=== PATIENT | male | born 1980 | race Caucasian/White ===

== ENCOUNTER 2017-03-16 09:30 | Emergency (ER) | payer OTHER ==
[~2017-03-16] VITALS: Ht 188 cm; Wt 99.8 kg
--- NOTE | 2017-03-16 10:29 | ED HAND/WRIST INJURY COMPLAINT ---
History of Present Illness General Chief Complaint: General Adult Stated Complaint: BIG FISH HOOK IN HAND Source: patient Exam Limitations: no limitations Vital Signs & Intake/Output Vital Signs & Intake/Output Vital Signs Date Time Temp Pulse Resp B/P B/P Pulse O2 O2 Flow FiO2 Mean Ox Delivery Rate 03/16 1154 97.5 88 18 137/87 98 Room Air ED Intake and Output 03/17 0000 03/16 1200 Intake Total 0 Output Total Balance 0 Intake, Oral 0 Patient 220 lb Weight Allergies Coded Allergies: No Known Allergies (03/16/17) Reconcile Medications Augmentin (Augmentin 500-125 Tablet) 500 MG-125 MG TABLET 1 TAB PO TID INFECTION Triage Note: PT TO TRIAGE WITH FISHHOOK BARBED IN BILATERAL HANDS. UNSURE ON LAST TETANUS Triage Nurses Notes Reviewed? yes HPI: Patient presents for evaluation of fishhooks embedded in his hands. He has one looked embedded in the pad of the right thumb and another embedded in the left hyperthenar eminence. Past History Travel History Traveled to [place] past 21 day No Medical History Any Pertinent Medical History? 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 No Review of Systems Review of Systems Constitutional: Reports: no symptoms. EENTM: Reports: no symptoms. Respiratory: Reports: no symptoms. Cardiovascular: Reports: no symptoms. GI: Reports: no symptoms. Genitourinary: Reports: no symptoms. Musculoskeletal: Reports: no symptoms. Skin: Reports: see HPI. Neurological/Psychological: Reports: no symptoms. Hematologic/Endocrine: Reports: no symptoms. Immunologic/Allergic: Reports: no symptoms. All Other Systems: Reviewed and Negative Physical Exam Physical Exam Hand Left: see below Hand Right: see below Comments: Gen.: Well-nourished, well-developed, no acute respiratory distress. Head: Normocephalic, atraumatic. Eyes: Normal inspection bilaterally Ears: Normal inspection bilaterally Nose: Normal inspection, nasal cannula in place Throat/mouth : Moist mucosa Neck: Supple, full range of motion, no goiter Heart: Regular rate and rhythm Lungs: Quiet respirations Back: Normal range of motion Extremities: Neurologic: Cranial nerves grossly intact, speech is clear Skin: warm and dry Psychiatric: Calm, cooperative, no apparent delusions or hallucinations Diagram Hands Front 1) fishhook 2) fishhook Progress Differential Diagnosis: TENDON OR VASCULAR INJURY Plan of Care: Current Medications Sig/Eileen Start time Last Medication Dose Stop Time Status Admin Tetanus/Diphtheria 0.5 ML ONCE ONE 03/16 1215 AC Toxoids Adsorbed 03/16 1216 (Decavac) Lidocaine 20 ML ONE ONE 03/16 1045 CAN (Lidocaine 2%) 03/16 1046 Comments: The fishhooks in the patient's hands felt loose so I doubt bony involvement. In addition given the positioning of the hooks and the physical exam, including essentially normal range of motion, I doubt tendon injury. There was no significant bleeding to suggest vascular injury. Procedure note: Patient's right thumb was draped and prepped in the usual manner and anesthetized with 1% lidocaine digital block with good anesthetic effect. The fragment of fishhook was pushed through the skin and removed in its entirety. The left thenar eminence was draped and prepped in the usual manner and anesthetized with local infiltration of 1% lidocaine with good anesthetic effect. The barbed end of the hook was pushed through the skin and cut with a wire basket maker. The remaining fishhook was then backed out in its entirety. Patient had good flexion and extension of the left thumb after fishhook removal. The fingers of both hands were neurovascularly intact after procedure with good distal capillary refill and sensation to light touch (although sensation was altered secondary to the lidocaine). Departure Departure Disposition: HOME OR SELF CARE Condition: Stable Clinical Impression Primary Impression: Laceration of right hand with foreign body Qualifiers: Encounter type: initial encounter Qualified Code: S61.421A - Laceration with foreign body of right hand, initial encounter Secondary Impressions: Laceration of left hand with foreign body Qualifiers: Encounter type: initial encounter Qualified Code: S61.422A - Laceration with foreign body of left hand, initial encounter Additional Instructions: Augmentin as prescribed. Ice and elevation of the wounds over the next 24-48 hours to reduce swelling. Ibuprofen 600 mg every 6 hours as needed for pain. Follow-up with your primary care physician in 48 hours to recheck the wounds and assess for any developing infection. Return if any concerns or sudden worsening. Thank you for choosing the [facility] for your care. It was a pleasure to serve you today. Rodney Falk M.D. [facility] Departure Forms: Customer Survey General Discharge Information Prescriptions: Current Visit Scripts Augmentin (Augmentin 500-125 Tablet) 1 TAB PO TID #21 TAB
[2017-03-16 11:54] VITALS: BP 137/87
[2017-03-16] MEDS ORDERED: AUGMENTIN 500-1 EACH PO (12:16)
== END 2017-03-16 12:18 ==
LOC: ERH 09:30
DX: S61.422A Laceration with foreign body of left hand, initial encounter (principal); W45.8XXA Other foreign body or object entering through skin, initial encounter; Y93.89 Activity, other specified; Y92.9 Unspecified place or not applicable
CPT/HCPCS: 90471; 90714